=== PATIENT | female | born 1940 | race Hispanic/Latino ===

== ENCOUNTER 2022-06-10 14:43 | Emergency (ER) | payer MEDICARE ==
[2022-06-10] MEDS ORDERED: Ketorolac Tromethamine 30 MG/ML VIAL ONE (15:48)
[2022-06-10] MEDS ORDERED: Acetaminophen 500 MG TAB ONE (15:48)
[2022-06-10] MEDS ORDERED: Lidocaine 1% PF 5 ML VIAL ONE ×2 (16:39→16:40)
[2022-06-10] MEDS ORDERED: Bacitracin 1 PK ONE (17:53)
== END 2022-06-10 18:20 | disposition home or self-care (01) ==
LOC: ERS 14:43
DX: S63.296A Dislocation of distal interphalangeal joint of right little finger, initial encounter (principal); S61.411A Laceration without foreign body of right hand, initial encounter; E11.9 Type 2 diabetes mellitus without complications; I10 Essential (primary) hypertension; W20.8XXA Other cause of strike by thrown, projected or falling object, initial encounter
CPT/HCPCS: 12002; 70450; 72125; 96372; J1885